=== PATIENT | male | born 1960 | race African-American/Black ===

== ENCOUNTER 2022-02-27 16:20 | Emergency (ER) | payer OTHER ==
[~2022-02-27] VITALS: Ht 167.6 cm; Wt 86.0 kg
[2022-02-27] MEDS ORDERED: AMOXICILLIN/POTASSIUM CLAVULANATE 875/125MG TAB PO ONE (18:30)
[2022-02-27] MEDS ORDERED: KETOROLAC 15MG/ML VIAL IM ONE (18:30)
[2022-02-27] MEDS ORDERED: PHENYTOIN SODIUM EXTENDED 100MG CAPSULE PO ONE (18:30)
[2022-02-27] MEDS ORDERED: CEFAZOLIN 1000MG PREMIX 50 ML IV ONE (18:45)
[2022-02-27] MEDS ORDERED: CEFAZOLIN 1000MG PREMIX 50 ML IV NR (20:15)
[2022-02-27 21:00] VITALS: BP 120/78
== END 2022-02-27 23:33 | disposition home or self-care (01) ==
LOC: ER 16:20
DX: Z00.00 Encounter for general adult medical examination without abnormal findings (principal); E11.9 Type 2 diabetes mellitus without complications
CPT/HCPCS: 96365; 99284; J0690